=== PATIENT | female | born 1990 ===

== ENCOUNTER 2019-08-02 21:41 | Emergency (ER) | payer SELFPAY ==
--- NOTE | 2019-08-02 22:26 | Event Note ---
ED Screening Note Date of service: 08/02/19 Time: 22:14 ED Screening Note: This is a 29 y.o. F. that presents to the ER with vaginal discharge and abdominal pain. Patient thought she was but menses started yesterday. She never took a test LMP 06/09/2019 + nausea, foul smelling vaginal discharge. - vomiting, urinary frequency, urgency, or dysuria. This initial assessment/diagnostic orders/clinical plan/treatment(s) is/are subject to change based on patients health status, clinical progression and re- assessment by fellow clinical providers in the ED. Further treatment and workup at subsequent clinical providers discretion. Patient/guardian urged not to elope from the ED as their condition may be serious if not clinically assessed and managed. Initial orders include: Labs
[2019-08-02 22:56] LABS: Bacteria,Urine 1+ /HPF (Negative); Bilirubin,Urine NEG (Negative); Blood,Urine LG (Negative); Color,Urine Amber (Yellow); Mucus,Urine 3+ /HPF; Urobilinogen,Urine < 2.0 mg/dL (<2.0)
[2019-08-02 23:05] LABS: Basophils # (Auto) 0.1 K/mm3 (0.0-0.1); Basophils % (Auto) 0.8 % (0.0-1.8); Eosinophils # (Auto) 0.1 K/mm3 (0.0-0.4); Eosinophils % (Auto) 0.6 % (0.0-4.3); Hemoglobin 13.5 gm/dl (10.1-14.3); Lymphocytes # (Auto) 3.2 K/mm3 (1.2-5.4); Lymphocytes % (Auto) 33.1 % (13.4-35.0); Mean Corpuscular HGB Conc 34 % (30-34); Mean Corpuscular Volume 92 fl (79-97); Monocytes # (Auto) 0.8 K/mm3 (0.0-0.8); Monocytes % (Auto) 7.8 % (0.0-7.3); Platelet Count 256 K/mm3 (140-440); Red Blood Count 4.34 M/mm3 (3.65-5.03); Red Cell Distribution Width 13.6 % (13.2-15.2)
[2019-08-02 23:18] LABS: Alanine Aminotransferase 17 units/L (7-56); Albumin 4.2 g/dL (3.9-5); BUN/Creatinine Ratio 14; Blood Urea Nitrogen 7 mg/dL (7-17); Hemolysis Index 6
[2019-08-02] MEDS ORDERED: NACL 0.9% 1000 ML 1,000 ML IV ONE (23:32)
[2019-08-02] MEDS ORDERED: REGLAN IV ONE (23:32)
--- NOTE | 2019-08-02 23:41 | Emergency Department Report ---
ED Female HPI - General Chief complaint: Abdominal Pain Stated complaint: VOMITING Time Seen by Provider: 08/02/19 22:14 Source: patient Mode of arrival: Ambulatory Limitations: Language Barrier (Berny, aquatic life laborer used for finnish interpretation) - History of Present Illness Initial comments: Patient is a 29-year-old female presents emergency room with complaints of abdominal pain that began 3 days ago. has associated nausea, vomiting, white va ginal discharge. pt is tolerating po intake. She states she thought she was but began having light vaginal spotting yesterday which she thought was her menstrual cycle. She denies any diarrhea, fever, chills, urinary symptoms, vaginal irritation and burning. States her last menstrual cycle was July 10. Denies any past medical history or allergies medications. - Related Data Previous Rx's Medication Instructions Recorded Last Taken Type metroNIDAZOLE [Flagyl] 500 mg PO BID 7 Days #14 tablet 08/03/19 Unknown Rx Allergies Allergy/AdvReac Type Severity Reaction Status Date / Time No Known Allergies Allergy Unverified 08/02/19 21:46 ED Review of Systems ROS: Stated complaint: VOMITING Other details as noted in HPI Comment: All other systems reviewed and negative ED Past Medical Hx - Past Medical History Previous Medical History?: No - Social History Smoking Status: Never Smoker - Medications Home Medications: Home Medications Medication Instructions Recorded Confirmed Last Taken Type metroNIDAZOLE [Flagyl] 500 mg PO BID 7 Days #14 tablet 08/03/19 Unknown Rx ED Physical Exam - General Limitations: No Limitations General appearance: alert, in no apparent distress - Head Head exam: Present: atraumatic, normocephalic - Eye Eye exam: Present: normal appearance - ENT ENT exam: Present: mucous membranes moist - Respiratory Respiratory exam: Present: normal lung sounds bilaterally. Absent: respiratory distress, wheezes, rales, rhonchi, stridor, chest wall tenderness, accessory muscle use, decreased breath sounds, prolonged expiratory - Cardiovascular Cardiovascular Exam: Present: regular rate, normal rhythm, normal heart sounds. Absent: systolic murmur, diastolic murmur, rubs, gallop - GI/Abdominal GI/Abdominal exam: Present: soft, normal bowel sounds. Absent: distended, tenderness, guarding, rebound, rigid - External exam: Present: normal external exam. Absent: erythema, swelling, lesions, lacerations, ecchymosis, bleeding Speculum exam: Present: vaginal discharge (brown/white), cervical discharge (brown/white), other (neuro ophthalmologist: BRANDON Hernandez, cervical os is closed). Absent: erythema, vaginal bleeding, foreign body, tissue, laceration Bi-manual exam: Present: normal bi-manual exam. Absent: cervical motion tendernes, adnexal tenderness, adnexal mass - Back Exam Back exam: Absent: CVA tenderness (R), CVA tenderness (L) - Neurological Exam Neurological exam: Present: alert, oriented X3 - Psychiatric Psychiatric exam: Present: normal affect, normal mood - Skin Skin exam: Present: warm, dry, intact ED Course Vital Signs 08/02/19 22:23 Temperature 97.5 F L Pulse Rate 67 Respiratory 18 Rate Blood Pressure 100/71 O2 Sat by Pulse 99 Oximetry ED Medical Decision Making - Lab Data Result diagrams: 08/02/19 22:41 08/02/19 22:41 - Radiology Data Radiology results: report reviewed Obstetrical ultrasound first trimester INDICATION: Pelvic pain and bleeding TECHNIQUE: Routine grayscale and Doppler imaging of the pelvis and pain FINDINGS: There are 2 gestational sacs identified within the uterus with one gestational sac having a pole measuring about 8 weeks and 5 days. heart rate of 172 bpm. The second gestational sac appears to contain a sac but no pole was definitely appreciated. No free pelvic fluid IMPRESSION: Possible twin intrauterine with twin A measuring about 8 weeks and 5 days. The second gestational sac does not demonstrate a pole but there is a yolk sac. Short-term 6- 10 day obstetrical ultrasound follow-up suggested for further evaluation. Signer Name: Martin Rene MD Signed: 08/03/2019 12:50 AM Workstation Name: [id number] Transcribed By: JASPER Dictated By: Martin Rene MD Electronically Authenticated By: Martin Rene MD Signed Date/Time: 08/03/19 0050 - Medical Decision Making Patient is a 29-year-old female presents emergency room with complaints of abdominal pain that began 3 days ago. has associated nausea, vomiting, white vaginal discharge. pt is tolerating po intake. She states she thought she was but began having light vaginal spotting yesterday which she thought was her menstrual cycle. She denies any diarrhea, fever, chills, urinary symptoms, vaginal irritation and burning. States her last menstrual cycle was July 10. Denies any past medical history or allergies medications. berny, aquatic life laborer used for finnish intrepretation for history and physical. language line used for discussion of results, counseling, answering of questions, dispositions/referrals and follow up no abd tenderness on exam. pelvic examination with neuro ophthalmologist, cervical os is closed, white/brown discharge present in vaginal vault, no CMT, no adenexal masses/tenderness, no clinical signs of PID. wet prep shows BV. G/C swab sent. labs are stable. pt is Rh positive. UA without evidence [place] [id number]. OB US shows: Possible twin intrauterine with twin A measuring about 8 weeks and 5 days. The second gestational sac does not demonstrate a pole but there is a yolk sac. Short-term 6- 10 day obstetrical ultrasound follow-up suggested for further evaluation. discussed all results in detail with pt and possibility of miscarriage of second twin. discussed the importance of pt follow up in 2 days for repeat hcg quant. discussed with pt also the importance of close US follow up. pt given US report to take to the [facility]. pt given prescription for flagyl for BV. advised pt to please take medication as prescribed. please increase your fluid intake. Please begin taking a vitamin [id number]. you will need to have a repeat beta-hCG quant in 2 days. today [place]cg quant was [id number]. you may have that completed by an [facility] or return to the emergency room. you need to have a repeat US within 6-10 days. please be seen by an [facility] in the next 2-3 days listed several clinics below. please go to medical records in 1 week with your drivers license to see if you need further treatment. have your partner tested and treated as well. abstain from sexual intercourse for 10 days. return to the emergency room for any new or worsening symptoms. - Differential Diagnosis IUP, miscarriage, ectopic, STD, BV, yeast, UTI, subchorionic hemorrhage Critical care attestation.: If time is entered above; I have spent that time in minutes in the direct care of this critically ill patient, excluding procedure time. ED Disposition Clinical Impression: Threatened miscarriage, Bacterial vaginosis Disposition: TO HOME OR SELFCARE Is pt being admited?: No Does the pt Need Aspirin: No Condition: Stable Instructions: Threatened Miscarriage (ED), Bacterial Vaginosis (ED) Additional Instructions: Please take medication as prescribed. please increase your fluid intake. Please begin taking a vitamin [id number]. you will need to have a repeat beta-hCG quant in 2 days. today your hcg quant was [id number]. you may have that completed by an [facility] or return to the emergency room. you need to have a repeat US within 6-10 days. please be seen by an [facility] in the next 2-3 days listed several clinics below. please go to medical records in 1 week with your drivers license to see if you need further treatment. have your partner tested and treated as well. abstain from sexual intercourse for 10 days. return to the emergency room for any new or worsening symptoms. Por favor tome la medicacin segn lo prescrito. por favor aumente newman ingesta de lquidos. Comience a sanjuanita kellie vitamina de venta juan pablo. Deber repetir la cantidad de beta-hCG en 2 byrd. hoy [place] [address]. Puede que un OB / GIN lo complete o regrese a la terrie de emergencias. necesita repetir en los [place]. dentro de 6-10 byrd. Por favor, sea visto por un obstetra / gineclogo en los prximos 2 a 3 byrd enumerados a continuacin en varias clnicas. vaya a los registros mdicos en 1 semana con newman licencia de conducir para klaus si necesita ms tratamiento. rakesh que newman kirill sea probada y tratada tambin. abstenerse de tener relaciones sexuales sury 10 byrd. Regrese a la terrie de emergencias por cualquier sntoma nuevo o que empeore. Prescriptions: metroNIDAZOLE [Flagyl] 500 mg PO BID 7 Days #14 tablet Referrals: [facility] [Provider Group] - 2-3 Days [facility] [Provider Group] - 2-3 Days [facility] [Provider Group] - 2-3 Days Forms: STI Treatment and Prevention Time of Disposition: 00:59 Print Language: BRAZILIAN
--- NOTE | 2019-08-03 00:55 | Ultrasound Report ---
Obstetrical ultrasound first trimester INDICATION: Pelvic pain and bleeding TECHNIQUE: Routine grayscale and Doppler imaging of the pelvis and pain FINDINGS: There are 2 gestational sacs identified within the uterus with one gestational sac having a pole measuring about 8 weeks and 5 days. heart rate of 172 bpm. The second gestational s ac appears to contain a sac but no pole was definitely appreciated. No free pelvic fluid IMPRESSION: Possible twin intrauterine with twin A measuring about 8 weeks and 5 days. The second gestational sac does not demonstrate a pole but there is a yolk sac. Short-term 6-10 day obstetrical ultrasound follow-up suggested for further evaluation. Signer Name: Martin Rene MD Signed: 08/03/2019 12:50 AM Workstation Name: [id number]
[2019-08-03 02:14] VITALS: BP 114/68
--- NOTE | 2019-08-04 07:58 | Ultrasound Report ---
This examination is just presented to me for dictation due to technical factors at the hospital. This examination was dictated on 08/02/2019 along with ULTRASOUND OB LESS THAN 14 WEEKS FETUS ADD GESTATI ON performed the same day. Please refer to that report accession number [id number]. Signer Name: Fawad Lara Jr, MD Signed: 08/04/2019 7:54 AM Workstation Name: [id number]
== END 2019-08-03 02:00 | disposition home or self-care (01) ==
LOC: ED 21:41
DX: O20.0 Threatened abortion (principal); O23.591 Infection of other part of genital tract in pregnancy, first trimester; B96.89 Other specified bacterial agents as the cause of diseases classified elsewhere; Z3A.08 8 weeks gestation of pregnancy
CPT/HCPCS: 36415; 76801; 76802; 76817; 80053; 81001; 83690; 84702; 84703; 85025; 86900; 86901; 87210; 87591; 96361; 96374; 99284; J2765; J7030

== ENCOUNTER 2019-08-06 05:01 | Emergency (ER) | payer SELFPAY ==
[2019-08-06 07:30] LABS: Basophils # (Auto) 0.1 K/mm3 (0.0-0.1); Basophils % (Auto) 0.9 % (0.0-1.8); Eosinophils # (Auto) 0.1 K/mm3 (0.0-0.4); Eosinophils % (Auto) 0.8 % (0.0-4.3); Hematocrit 40.4 % (30.3-42.9); Hemoglobin 13.6 gm/dl (10.1-14.3); Lymphocytes % (Auto) 40.6 % (13.4-35.0); Mean Corpuscular HGB Conc 34 % (30-34); Mean Corpuscular Volume 93 fl (79-97); Monocytes # (Auto) 0.7 K/mm3 (0.0-0.8); Monocytes % (Auto) 9.2 % (0.0-7.3); Platelet Count 261 K/mm3 (140-440); Red Blood Count 4.35 M/mm3 (3.65-5.03); Red Cell Distribution Width 13.7 % (13.2-15.2)
[2019-08-06 07:59] LABS: Bacteria,Urine 1+ /HPF (Negative); Bilirubin,Urine NEG (Negative); Blood,Urine LG (Negative); Color,Urine Amber (Yellow); Mucus,Urine 1+ /HPF; Urobilinogen,Urine < 2.0 mg/dL (<2.0)
--- NOTE | 2019-08-06 08:12 | Ultrasound Report ---
ULTRASOUND OB LESS THAN 14 WEEKS FETUS ULTRASOUND OB LESS THAN 14 WEEKS FETUS ADD GESTATION HISTORY: Vaginal bleeding, patient is 9 weeks . Twin . COMPARISON: 08/02/2019 TECHNIQUE: Routine transabdominal OB ultrasound performed. FINDINGS: Uterus: Mildly enlarged measuring 11.1 x 6.7 x 7 point cm. A twin gestation is suggested. 2 gestati onal sacs are identified. FETUS A Gestational Sac: Well-defined oval shape and intrauterine in location. Yolk Sac: Normal in appearance. Fetus/Embryo: [place]-rump length of 1.77 cm, corresponding to an estimated gestational age of 8 weeks 2 days. Embryonic/ anatomy is too small for evaluation. Embryonic/ cardiac activity: 171bpm Placenta: Too small for evaluation. Amniotic fluid volume: Subjectively appropriate for gestational age. FETUS B Gestational Sac: Well-defined oval shape and intrauterine in location. Yolk Sac: Normal in appearance. Fetus/Embryo: Not seen Embryonic/ cardiac activity: Not seen Ovaries: The right ovary is normal in size and appearance with normal blood flow, measuring 3.2 x 1. 5 x 2.1 cm. The left ovary is normal in size and appearance with normal blood flow, measuring 2.7 x 1.8 x 2.9 cm. No focal adnexal lesion or mass. Additional findings: There appears to be at least 2, possibly 3, small subchorionic hemorrhages along the posterior and right lateral borders of the gestational sac of fetus A IMPRESSION A twin gestation is identified. Fetus A is unremarkable with heart rate measuring 171 bpm and estimat ed age of 8 weeks 2 days. The second gestational sac, or fetus B, contains only a yolk sac. No pole or heart rate could be detected at this time. Close interval follow-up is recommended. Small subchorionic hemorrhages as described. Signer Name: Fawad Lara Jr, MD Signed: 08/06/2019 8:08 AM Workstation Name: [id number]
[2019-08-06] MEDS ORDERED: ROCEPHIN/NS 1 GM/50 ML 1 GM/50 ML BAG IV ONE (10:01)
[2019-08-06] MEDS ORDERED: NACL 0.9% 1000 ML 1,000 ML IV ONE (10:01)
--- NOTE | 2019-08-06 10:03 | Emergency Department Report ---
ED HPI - General Chief complaint: Vaginal Bleeding Stated complaint: VAG BLEEDING 8 WKS Time Seen by Provider: 08/06/19 10:01 Source: patient Mode of arrival: Ambulatory Limitations: Language Barrier - History of Present Illness Initial comments: 29 yo female seen here a few days ago for same. Did not follow up. Comes in today with same symptoms. Vag bleed in preg. . LMP 04-08-19 mild abd pain with light vag bleeding for several days. Ambulatory. non ill and nontoxic on exam. Taking po. - Related Data Previous Rx's Medication Instructions Recorded Last Taken Type metroNIDAZOLE [Flagyl] 500 mg PO BID 7 Days #14 tablet 08/03/19 Unknown Rx Acetaminophen [Tylenol] 325 mg PO Q4H PRN #20 capsule 08/06/19 Unknown Rx Allergies Allergy/AdvReac Type Severity Reaction Status Date / Time No Known Allergies Allergy Unverified 08/02/19 21:46 ED Review of Systems ROS: Stated complaint: VAG BLEEDING 8 WKS Other details as noted in HPI Comment: All other systems reviewed and negative ED Past Medical Hx - Past Medical History Previous Medical History?: No - Surgical History Past Surgical History?: No - Family History Family history: no significant - Social History Smoking Status: Never Smoker Substance Use Type: None - Medications Home Medications: Home Medications Medication Instructions Recorded Confirmed Last Taken Type metroNIDAZOLE [Flagyl] 500 mg PO BID 7 Days #14 tablet 08/03/19 Unknown Rx Acetaminophen [Tylenol] 325 mg PO Q4H PRN #20 capsule 08/06/19 Unknown Rx ED Physical Exam - General Limitations: Language Barrier General appearance: alert - Head Head exam: Present: normocephalic - Eye Eye exam: Present: PERRL - ENT ENT exam: Present: mucous membranes moist - Respiratory Respiratory exam: Present: normal lung sounds bilaterally - Cardiovascular Cardiovascular Exam: Present: regular rate - GI/Abdominal GI/Abdominal exam: Present: soft, normal bowel sounds - Rectal Rectal exam: Present: deferred - Extremities Exam Extremities exam: Present: normal inspection, full ROM - Back Exam Back exam: Present: normal inspection, full ROM - Neurological Exam Neurological exam: Present: alert, oriented X3 - Psychiatric Psychiatric exam: Present: normal affect, normal mood - Skin Skin exam: Present: warm, dry ED Course Vital Signs 08/06/19 08/06/19 08/06/19 05:05 10:22 11:06 Temperature 98.7 F Pulse Rate 64 86 86 Respiratory 12 16 17 Rate Blood Pressure 105/58 Blood Pressure 95/63 106/64 [Left] O2 Sat by Pulse 99 98 97 Oximetry ED Medical Decision Making - Lab Data Result diagrams: 08/06/19 07:01 - Radiology Data Radiology results: report reviewed, image reviewed - Medical Decision Making Labs 08/06/19 08/06/19 08/06/19 05:39 07:01 07:09 WBC 7.4 RBC 4.35 Hgb 13.6 Hct 40.4 MCV 93 MCH 31 MCHC 34 RDW 13.7 Plt Count 261 Lymph % (Auto) 40.6 H [place] % (Auto) 9.2 H Eos % (Auto) 0.8 Baso % (Auto) 0.9 Lymph # 3.0 [place] # 0.7 Eos # 0.1 Baso # 0.1 Seg Neutrophils % 48.5 Seg Neutrophils # 3.6 HCG, Quant 24694 H Urine Color Urine Turbidity Urine pH Ur Specific [place] Urine Protein Urine Glucose (UA) Urine Ketones Urine Blood Urine Nitrite Urine Bilirubin Urine Urobilinogen Ur Leukocyte Esterase Urine WBC (Auto) Urine RBC (Auto) U Epithel Cells (Auto) Urine Bacteria (Auto) Urine Mucus Blood Type A POSITIVE Ord Rhogam Gestat Weeks Rh pos 08/06/19 Unknown WBC RBC Hgb Hct MCV MCH MCHC RDW Plt Count Lymph % (Auto) [place] % (Auto) Eos % (Auto) Baso % (Auto) Lymph # [place] # Eos # Baso # Seg Neutrophils % Seg Neutrophils # HCG, Quant Urine Color Katheryn Urine Turbidity Cloudy Urine pH 6.0 Ur Specific [place] 1.020 Urine Protein 30 mg/dl Urine Glucose (UA) Neg Urine Ketones Neg Urine Blood Lg Urine Nitrite Neg Urine Bilirubin Neg Urine Urobilinogen < 2.0 Ur Leukocyte Esterase Mod Urine WBC (Auto) 29.0 H Urine RBC (Auto) 25.0 U Epithel Cells (Auto) 39.0 H Urine Bacteria (Auto) 1+ Urine Mucus 1+ Blood Type Ord Rhogam Gestat Weeks Vital Signs 08/06/19 08/06/19 05:05 10:22 Temperature 98.7 F Pulse Rate 64 86 Respiratory 12 16 Rate Blood Pressure 105/58 Blood Pressure 95/63 [Left] O2 Sat by Pulse 99 98 Oximetry HCG HAS INCREASED SINCE LAST VISIT UA NOTED US NOTED REHAB AID USED TO DISCUSS WITH PT SO THAT SHE WILL COMPLY WITH FOLLOW UP. SHE VERBALIZES UNDERSTANDING OF NEED TO SEE SPECIALIST - Differential Diagnosis RO AB Critical care attestation.: If time is entered above; I have spent that time in minutes in the direct care of this critically ill patient, excluding procedure time. ED Disposition Clinical Impression: Threatened miscarriage, Bacterial vaginosis, Disposition: TO HOME OR SELFCARE Is pt being admited?: No Does the pt Need Aspirin: No Condition: Stable Instructions: Threatened Miscarriage (ED), Bacterial Vaginosis (ED) Additional Instructions: take flagyl given to you the other day tylenol for pain FOLLOW UP WITH MD WE DISCUSSED SEE REFERRAL BELOW no sex nothing in vagina hydrate well with water Prescriptions: Acetaminophen [Tylenol] 325 mg PO Q4H PRN #20 capsule PRN Reason: Pain, Mild (1-3) Referrals: CELY ANDERSON MD [Staff Physician] - 3-5 Days STEPHANIE AQUINO MD [Staff Physician] - 3-5 Days Forms: STI Treatment and Prevention Time of Disposition: 10:28 Print Language: MONGOLIAN
[2019-08-06 11:08] VITALS: BP 106/64
== END 2019-08-06 11:08 | disposition home or self-care (01) ==
LOC: ED 05:01
DX: O20.0 Threatened abortion (principal); O23.592 Infection of other part of genital tract in pregnancy, second trimester; B96.89 Other specified bacterial agents as the cause of diseases classified elsewhere; Z3A.16 16 weeks gestation of pregnancy
CPT/HCPCS: 36415; 76801; 76802; 81001; 84702; 85025; 86900; 86901; 87086; 96365; 96372; 99284; J0696; J7030